=== PATIENT | male | born 1995 | race Caucasian/White ===

== ENCOUNTER 2019-03-03 21:00 | Observation (INO) | payer OTHER ==
[2019-03-03] MEDS ORDERED: HYDROMORPHONE HCL 1 MG/ML INJ IV PRN (21:29)
[2019-03-03] MEDS ORDERED: ONDANSETRON 4 MG/2 ML VIAL IV PRN (21:29)
[2019-03-03] MEDS: Ringers Lactate 1,000 ML IV SCH (22:13)
[2019-03-03 22:46] VITALS: BMI 25.1
[2019-03-03] MEDS ORDERED: INFLUENZA VACCINE (for 3y+) 0.5 ML DOSE IMVAC ONE (23:13)
[2019-03-03] MEDS ORDERED: PIPER/TAZO/NS 3.375gm 6.750 GM/200 ML BAG ONE (23:53)
[2019-03-04] MEDS: PIPER/TAZO/NS 3.375gm 3.375 GM/100 ML BAG IVPB SCH ×2 (01:02→05:16)
[2019-03-04] MEDS: Ringers Lactate 1,000 ML IV SCH ×2 (05:15→14:00)
[2019-03-04] MEDS ORDERED: PROPOFOL 200 MG/20 ML VIAL IV ONE (06:59)
[2019-03-04] MEDS ORDERED: MIDAZOLAM HCL 2 MG/2 ML INJ ONE (07:00)
[2019-03-04] MEDS ORDERED: FENTANYL CITR 100 MCG/2 ML ONE (07:00)
[2019-03-04] MEDS ORDERED: LIDOCAINE 1% MPF 5 ML VIAL ONE (07:00)
[2019-03-04] MEDS ORDERED: ROCURONIUM 50 MG/5 ML VIAL IV ONE (07:00)
[2019-03-04] MEDS ORDERED: Ringers Lactate 1,000 ML IV ONE (07:19)
[2019-03-04] MEDS ORDERED: KETOROLAC 30 MG/ML INJ ONE (07:43)
[2019-03-04] MEDS ORDERED: ONDANSETRON 4 MG/2 ML VIAL ONE (07:43)
[2019-03-04] MEDS ORDERED: NEOSTIGMINE 1 MG/ML -10 ML VIAL ONE (07:51)
[2019-03-04] MEDS ORDERED: GLYCOPYRROLATE 0.2 MG/ML SYR ONE (07:51)
[2019-03-04] MEDS: BUPIVACAINE 0.5% PF 10 ML VIAL ONE ×2 (07:54→08:00)
[2019-03-04] MEDS ORDERED: Mastisol Adhesive Liq ONE (08:12)
--- NOTE | 2019-03-04 08:19 | P.OP ---
Electrical High Tension Tester: Meghan KELLY Preoperative diagnosis: Acute Appy Postoperative diagnosis: same Primary procedure: Lap Appy Anesthesia: General Estimated blood loss: min Specimen: appy Findings: as above Complications: None Transferred to: Recovery Room Condition: Good
[2019-03-04] MEDS ORDERED: ONDANSETRON 4 MG/2 ML VIAL IV PRN (08:35)
[2019-03-04 08:51] VITALS: TEMP 98.9
[2019-03-04 08:58] VITALS: BP 113/61; O2SAT 98
[2019-03-04] MEDS: HYDROCODONE/APAP 7.5/325 MG TAB PO PRN ×2 (09:22→14:07)
--- NOTE | 2019-03-04 11:09 | PREOPHP ---
Date of Admission: 03/03/2019 Chief Complaint: Abdominal pain. History Of Present Illness: The patient is a 23-year-old gentleman, who has had off and on pain in p eriumbilical region for about a year, but yesterday after eating at [employer], he had periumbilical pain that going to the right lower quadrant, constant in nature, associated with diarrhea, but no co nstipation. No blood in his stool. No dysuria, hematuria. No sore throat, runny nose, cough, heada ches, or dizziness. No chest pain. No fever or chills. Review of Systems: Otherwise unremarkable. Past Medical History: Negative. Past Surgical History: No surgeries. Allergies: NO ALLERGIES. Social History: Denies smoking or drinking. Family History: Significant for hypertension. Physical Examination: Vital Signs: Stable. Currently afebrile. General: Awake, alert, and oriented x3. Head and Neck: Cranial nerves 2 through 12 are grossly within normal limits. No neck masses. No JV D. Throat clear. Neck is supple. Chest: Clear. Heart: S1 and S2. Abdomen: Soft, nondistended. Positive bowel sounds. Positive right lower quadrant tenderness with rebound. No rigidity or guarding. Extremities: Adequately perfused. Nontender. Neuro: Nonfocal. Diagnostic Data: White count is normal with slight left shift. CT of the abdomen is consistent with acute appendicitis. Assessment: Acute appendicitis. Plan: Admit, n.p.o., IV fluid, IV antibiotic, to the OR for lap-appy possible open. The patient and family understand the risks, benefits, and alternatives and agree to the procedure. PAZ/MODL Voice ID: [id number]
[2019-03-04] MEDS ORDERED: PIPER/TAZO/NS 3.375gm 3.375 GM/100 ML BAG IVPB SCH (14:00)
--- NOTE | 2019-03-04 20:27 | OP ---
Date of Procedure: 03/04/2019 Surgeon: Vince Levin MD Catering Cook: LETICIA Benavides. Preoperative Diagnosis: Acute appendicitis. Postoperative Diagnosis: Acute appendicitis. Procedure: Laparoscopic appendectomy Estimated Blood Loss: Minimal. Specimen: Appendix. Findings: Above. Anesthesia: General. Complications: None. Patient tolerated the procedure in stable condition, taken to Recovery in good general condition. Procedure In Detail: The patient was brought to the OR and placed in supine position. General anest hesia was begun. The patient was prepped and draped in usual sterile fashion. Marcaine 0.5% was inf iltrated locally. A 15 blade was used to make a 1 cm supraumbilical midline incision. Subcutaneous tissue divided. The fascia was identified and divided. A #1 Vicryl stay suture was placed. Periton eal cavity was entered with sharp and blunt dissection. A 12 mm trocar was placed into the peritonea l cavity under direct vision. Pneumoperitoneum was established. Then, two 5 mm trocars were placed 1 in the suprapubic region, 1 in the left lower quadrant. Laparoscopy revealed acute retrocecal appe ndicitis, uncomplicated, indurated injection, minimal exudate. Base of the appendix and mesoappendix clearly identified and divided with Endo-QUIN stapling device. Minimal oozing noted from the appendi ceal artery. Vascular clip easily controlled. Labs in the appendix retrieved through the umbilicus via an EndoCatch bag. Right lower quadrant of pelvis thoroughly irrigated. Effluent was clear. No evidence of bleeding or bowel injury appreciated. Subsequently, all trocars were removed under direc t vision. Stay sutures were tied to each other to reapproximate the fascial defect. Subcutaneous wo unds irrigated. Bleeding controlled with cautery. A 3-0 chromic was used to approximate subcutaneou s tissue and close skin. Sterile dressing was applied. The patient was awakened and taken to Recove ry in good general condition. The patient will go to the floor from the recovery room and this after noon if he is tolerating diet, he will be discharged to home. Disposition: Home. Condition: Stable. Discharge Instructions: Resume home medications and diet. Activity as tolerated. No heavy lifting. Remove outer dressing in a.m. Shower. Keep wound clean and dry. Keep Steri-Strips on at all time s. Follow up in my office in 1 week. Call for appointment. Tylenol No. 3 one tablet p.o. every 4 h ours p.r.n. pain. Augmentin 875 mg p.o. every 12 hours. /MODL Voice ID: [id number] Report ID: [id number]
== END 2019-03-04 14:46 | disposition home or self-care (01) ==
LOC: 2ND 21:00
PROVIDERS: ADMIT Surgery; ATTEND Surgery
PROC: 0DTJ4ZZ Resection of Appendix, Percutaneous Endoscopic Approach (ICD-10-PCS; principal; 2019-03-04 07:30)
DX: K35.80 Unspecified acute appendicitis (principal)
CPT/HCPCS: 88304; 44970; J2704; J2710; J2250; J3010; J2543; J1170; G0378 ×3; J7120 ×3; J2405; G0379